=== PATIENT | female | born 1990 | race Caucasian/White ===

== ENCOUNTER 2016-05-01 08:13 | Inpatient (IN) | payer OTHER ==
[~2016-05-01] VITALS: Ht 162.6 cm; Wt 89.8 kg
[2016-05-01] VITALS (29 sets, daily range): BP systolic 97–123; BP diastolic 52–93; PULSE 16–110; RESP 16–18; TEMP 98.2–98.4
[~2016-05-01 08:13] MED LIST: FLON0.053; XYZA5TAB2 PO
[2016-05-01] MEDS ORDERED: LACTATED RINGER'S 1000 ML INJ 1,000 ML IV PRN (09:06)
[2016-05-01] MEDS ORDERED: LIDOCAINE HCL 1% 50 ML VIAL I-DERMAL PRN (09:15)
[2016-05-01] MEDS ORDERED: LIDOCAINE HCL 1% 50 ML VIAL INFIL PRN (09:15)
[2016-05-01] MEDS ORDERED: MINERAL OIL 10 ML VIAL TOPICAL PRN (09:15)
[2016-05-01] MEDS ORDERED: ONDANSETRON HCL 4 MG/2 ML VIAL IV PRN (09:15)
[2016-05-01] MEDS ORDERED: OXYTOCIN 30 UNITS-500ML PREMIX 500 ML IV ONE (09:15)
[2016-05-01] MEDS ORDERED: SODIUM CHLORID 0.9% 500 ML INJ 500 ML IV PRN (09:15)
[2016-05-01] MEDS ORDERED: CITRIC ACID-SODIUM CITRATE LIQ 30 ML UDC PO SCH (09:15)
[2016-05-01 09:25] LABS: AUTOMATED NEUTROPHIL # 8.2 TH/MM3 (1.8-7.7); BASOPHIL % 0.3 % (0.0-2.0); EOSINOPHIL % 0.4 % (0.0-4.0); HEMATOCRIT 30.3 % (35.0-46.0); LYMPH % 14.9 % (9.0-44.0); LYMPHOCYTE # 1.6 TH/MM3 (1.0-4.8); MEAN CELL VOLUME 74.3 FL (80.0-100.0); MEAN CORPUSCULAR HEMOGLOBIN 24.6 PG (27.0-34.0); MEAN CORPUSCULAR HGB CONC 33.2 % (32.0-36.0); MONO % 8.3 % (0.0-8.0); NEUT % 76.1 % (16.0-70.0); PLATELET COUNT 358 TH/MM3 (150-450); RED BLOOD COUNT 4.08 MIL/MM3 (4.00-5.30); RED CELL DISTRIBUTION WIDTH 14.6 % (11.6-17.2); WHITE BLOOD COUNT 10.8 TH/MM3 (4.0-11.0)
[2016-05-01] MEDS ORDERED: SODIUM CHLOR 0.9% 1000 ML INJ 1,000 ML IV PRN (09:26)
[2016-05-01 09:29] LABS: HEMO FLAGS AUTO DIFF
[2016-05-01] MEDS: LACTATED RINGER'S 1000 ML INJ 1,000 ML IV SCH ×3 (09:29→23:00)
[2016-05-01] MEDS: MISOPROSTOL 25 MCG SUPP VAGINAL SCH ×2 (09:29→13:30)
[2016-05-01 09:31] LABS: BACTERIA, URINE FEW /hpf; BLOOD, URINE NEG (NEG); GLUCOSE,URINE NEG (NEG); HYALINE CAST, URINE 1 /lpf (RARE); KETONE, URINE NEG (NEG); NITRITE,URINE NEG (NEG); PH, URINE 5.5 (5.0-8.5); SQUAMOUS EPITHELIAL CELL URINE 3 /hpf (0-5); URINE COLOR LIGHT-YELLOW (YELLW/STRAW)
[2016-05-01 09:32] LABS: COMMENT (UR) CULT NOT INDICATED; CULTURE IF INDICATED CULT NOT INDICATED
[2016-05-01 10:04] LABS: SCAN/DIFF AUTO DIFF CONFIRMED
--- NOTE | 2016-05-01 13:12 | MH ---
cc: VISHAL PATEL M.D. DATE OF ADMISSION: 05/01/2016 DATE OF 1990 HISTORY OF PRESENT ILLNESS The patient is 40 weeks and 1 day based on early first trimester ultrasound, estimated date of confinement is 04/29/2016. The patient presents for routine care, concerns for developing macrosomia. Estimated weight is 8 at 1/2 pound. The patient's pelvis was considered adequate. Patient is admitted for Cervidil and induction of labor. PATIENT'S OBSTETRICAL HISTORY The patient is unremarkable. OB course, good care documented. The patient's blood type is A+. Group B strep status is negative. PAST MEDICAL HISTORY ALLERGIES No known drug allergies. MEDICATIONS Current medications include vitamins. She denies any systemic or chronic disease. States she has no past surgical history. The patient denies any use of alcohol, tobacco or illicit substances. FAMILY HISTORY Noncontributory. PHYSICAL EXAMINATION The patient is a well-appearing, well-nourished female. VITAL SIGNS: Stable. Blood pressure is 100/60, pulse and respiratory rate are normal. heart rate is in the 140s. HEENT: Shows no adenopathy or thyromegaly. LUNGS: Clear in all jesus. CARDIAC: Regular rhythm without murmur, rub or gallop. ABDOMEN: Abdomen is gravid, full-term fundus is in excess of 40 cm. Cervix is 50% posterior, 1 cm soft. EXTREMITIES: Symmetrical, full range of motion. No cyanosis, clubbing or edema. ASSESSMENT The patient is at 40 weeks and 1 day for induction of labor concerns for large for gestational age infant. The patient's group B strep is negative. Induction is to be performed with Cervidil. Vishal Patel MD [facility]/EO /5:27 PM /12:10 PM
[2016-05-01] MEDS ORDERED: SODIUM CHLOR 0.9% 1000 ML INJ 1,000 ML OTHER PRN (17:00)
[2016-05-01] MEDS ORDERED: DINOPROSTONE 10 MG VAG INSERT VAGINAL ONE (18:00)
[2016-05-01] MEDS ORDERED: PREN1CAP28 PO (19:02)
[2016-05-01] MEDS ORDERED: OXYTOCIN 30 UNITS-500ML PREMIX 500 ML ONE (22:28)
[2016-05-01] MEDS ORDERED: fentaNYL 2MCG-BUPIV 0.125% INJ 100 ML ONE (22:28)
[2016-05-02] VITALS (53 sets, daily range): BP systolic 91–117; BP diastolic 49–78; PULSE 18–112; RESP 16–20; TEMP 97.6–98.6
[2016-05-02] MEDS ORDERED: NO SYSTEM NARCOTICS XX PRN (00:15)
[2016-05-02] MEDS ORDERED: ePHEDrine/NS 25 MG/5 ML SYR IV PRN (00:15)
[2016-05-02] MEDS ORDERED: fentaNYL 2MCG-BUPIV 0.125% 100 ML EPIDURAL SCH (00:15)
[2016-05-02] MEDS ORDERED: DO NOT ADMINISTER ANTICOAGULANTS XX PRN (00:15)
[2016-05-02] MEDS ORDERED: OXYTOCIN 30 UNITS-500ML PREMIX 500 ML IV SCH (00:30)
[2016-05-02] MEDS: LACTATED RINGER'S 1000 ML INJ 1,000 ML IV SCH (05:42)
--- NOTE | 2016-05-02 08:51 | PD.OB.DELI ---
Anesthesia: Epidural Episiotomy: Midline Vaginal Delivery: Normal Presentation: Occiput anterior Nuchal Cord: x1 : Female One Minute : 9 Five Minute : 9 Weight: 7-10 Care: Suctioned Placenta: Spontaneous delivery Laceration: Episiotomy Repair: Chromic interrupted, Vicryl running Beverly Mirza MD May 02, 2016 08:51
[2016-05-02] MEDS ORDERED: DOCUSATE SODIUM 50 MG/SENNA 8.6 MG TAB PO PRN (09:00)
[2016-05-02] MEDS ORDERED: SODIUM CHLORIDE 0.9% FLUSH 5 ML FLUSH IV PRN (09:00)
[2016-05-02] MEDS ORDERED: ZOLPIDEM TARTRATE 5 MG TAB PO PRN (09:00)
[2016-05-02] MEDS ORDERED: ALUMINUM/MAGNESIUM/SIMETH 30 ML CUP PO PRN (09:00)
[2016-05-02] MEDS ORDERED: IBUPROFEN 600 MG TAB PO PRN (09:00)
[2016-05-02] MEDS ORDERED: BENZOCAINE 20% TOPICAL SPRAY 60 ML CAN TOPICAL PRN (09:00)
[2016-05-02] MEDS ORDERED: WITCH HAZEL 50%/GLYCERIN 12.5% 40 PAD JAR TOPICAL PRN (09:00)
[2016-05-02] MEDS ORDERED: SODIUM CHLORIDE 0.9% FLUSH 5 ML FLUSH IV SCH (09:00)
[2016-05-02] MEDS ORDERED: ONDANSETRON ODT 4 MG TAB PO PRN (09:00)
[2016-05-02] MEDS ORDERED: OXYTOCIN 30 UNITS-500ML PREMIX 500 ML IV ONE (09:00)
[2016-05-02] MEDS ORDERED: ACETAMINOPHEN 325 MG TAB PO PRN (09:00)
[2016-05-02] MEDS: IBUPROFEN SUSP 100 MG/5 ML 120 ML BOTTLE PO PRN ×3 (11:20→17:00)
[2016-05-02] MEDS ORDERED: MEASLES, MUMPS, RUBELLA VACCINE 0.5 ML VIAL SQ ONE (16:00)
[2016-05-02] MEDS ORDERED: DIPHTH/TETANUS/ACEL PERTUSSIS (BOOSTER) 0.5 ML VIAL/PFS IM ONE (16:00)
[2016-05-02] MEDS: ACETAMINOPHEN/HYDROcodone 325 MG/5 MG TAB PO PRN (22:35)
[2016-05-03 01:54] VITALS: BP 102/69; PULSE 67; RESP 16
[2016-05-03] MEDS: ACETAMINOPHEN/HYDROcodone 325 MG/5 MG TAB PO PRN ×2 (04:25→11:26)
[2016-05-03 08:00] VITALS: BP 112/75; PULSE 86; RESP 18; TEMP 98.5
[2016-05-03] MEDS: IBUPROFEN SUSP 100 MG/5 ML 120 ML BOTTLE PO PRN ×2 (09:11→16:02)
--- NOTE | 2016-05-03 10:03 | HHI.OB ---
Subjective Post Day: 1 Remarks Doing well small episiotomy tender breast feeding Objective Vitals/I&O Vital Signs Date Time Temp Pulse Resp B/P Pulse Ox O2 Delivery O2 Flow Rate FiO2 05/03/16 08:00 98.5 86 18 112/75 05/03/16 01:54 67 102/69 05/03/16 01:54 16 05/02/16 20:51 86 91/50 05/02/16 20:51 97.6 16 05/02/16 11:35 98.0 20 20 108/68 05/02/16 10:30 18 05/02/16 10:15 90 107/63 Objective Remarks GENERAL: Well-nourished, well-developed patient. CARDIOVASCULAR: Regular rate and rhythm without murmurs, gallops, or rubs. RESPIRATORY: Breath sounds equal bilaterally. No accessory muscle use. ABDOMEN/GI: Abdomen soft, non-tender. Fundus: Firm, non-tender at umbilicus. GENITOURINARY: Light to moderate bleeding. EXTREMITIES: No cyanosis or edema, non-tender, without signs of DVT. Medications and IVs Current Medications Medications (Trade) Dose Ordered Sig/Antione Route Start Time Stop Time Status Last Admin (NS Flush) 2 ml BID IV 05/02/16 09:00 (NS Flush) 2 ml UNSCH PRN IV 05/02/16 09:00 (Tylenol) 650 mg Q4H PRN PO 05/02/16 09:00 (Americaine 20% Top Spr) 1 spray Q4H PRN TOPICAL 05/02/16 09:00 05/02/16 11:18 (Tucks Pads) 1 applic QID PRN TOPICAL 05/02/16 09:00 05/02/16 11:18 (Carline-Colace) 2 tab Q12H PRN PO 05/02/16 09:00 (Ambien) 5 mg HS PRN PO 05/02/16 09:00 (Mag-Al Plus Susp Liq) 15 ml Q8H PRN PO 05/02/16 09:00 (Zofran Odt) 4 mg Q6H PRN PO 05/02/16 09:00 (Motrin Liq) 600 mg Q6H PRN PO 05/02/16 11:45 05/03/16 09:11 ([place] 5-325 Mg) 1 tab Q6H PRN PO 05/02/16 22:00 05/03/16 04:25 Assessment/Plan Assessment and Plan doing well anticipate discharge tomorrow am counseled Elvia Membreno MD May 03, 2016 10:03
== END 2016-05-03 17:00 | disposition home or self-care (01) | DRG 775 ==
LOC: H2EA 08:13 → H1EA 05-02 11:10
PROVIDERS: ADMIT Obstetrics & Gynecology; ATTEND Obstetrics & Gynecology
PROC: 10E0XZZ Delivery of Products of Conception, External Approach (ICD-10-PCS; principal; 2016-05-02)
PROC: 0W8NXZZ Division of Female Perineum, External Approach (ICD-10-PCS; 2016-05-02)
PROC: 00HU33Z Insertion of Infusion Device into Spinal Canal, Percutaneous Approach (ICD-10-PCS; 2016-05-02)
PROC: 3E0R3CZ (ICD-10-PCS; 2016-05-02)
DX: O48.0 Post-term pregnancy (principal); O69.81X0 Labor and delivery complicated by cord around neck, without compression, not applicable or unspecified; Z37.0 Single live birth; Z3A.40 40 weeks gestation of pregnancy
CPT/HCPCS: 81001; 85025; 86900; 86901; J2590; J3010; J7120

== ENCOUNTER 2017-02-08 18:53 | Emergency (ER) | payer OTHER ==
[~2017-02-08] VITALS: Ht 160 cm; Wt 72.0 kg
[~2017-02-08 18:53] MED LIST changes: -FLON0.053; +LEVA750T9 PO; +PRED20 PO; +PREN1CAP28 PO; -XYZA5TAB2 PO
[2017-02-08 18:54] VITALS: BP 138/80; PULSE 91; RESP 12; TEMP 98.5; O2SAT 98
[2017-02-08] MEDS ORDERED: PRED20 PO (19:30)
[2017-02-08] MEDS ORDERED: SODIUM CHLOR 0.9% 1000 ML INJ 1,000 ML IV SCH (19:39)
--- NOTE | 2017-02-08 20:01 | PD ---
HPI Chief Complaint: Allergic/Adverse Reaction Time Seen by Provider: 19:30 Travel History International Travel<30 days: No Contact w/Intl Traveler<30days: No Traveled to known affect area: No History of Present Illness HPI This is a 27-year-old female who presents for evaluation of a rash and tightness in her throat. Initially she developed some body aches and sore throat 1-2 weeks ago. She had a negative strep test at that time. She developed some dysuria and was started on an unknown antibiotic. Her STOCK SHEETS CLEANER INSPECTOR then changed her antibiotic to Levaquin 7 days ago. She completed this 2 days ago. She developed a rash 3 days ago and was seen at an urgent care center and started on prednisone and Benadryl. The rash persisted so yesterday she saw her retail assistant manager who increased her prednisone dosage and gave her an intramuscular site Metro injection. She presents today because the rash has persisted. The rash is moderate, no aggravating factors, non-pruritic, nonpainful. She endorses some tightness in her throat as well as persistent dysuria. She denies any vaginal bleeding or discharge, abdominal pain, cough or congestion, chest pain or shortness of breath, fevers or chills. No sick contacts. No other complaints. [facility] Past Medical History Medical History: Denies Significant Hx Diminished Hearing: No Tetanus Vaccination: Unknown Influenza Vaccination: Yes ?: Not LMP: 08/03/2015 : 1 Para: 1 Past Surgical History Surgical History: No Previous Surgery Social History Alcohol Use: Yes (RARE) Tobacco Use: No Substance Use: No Allergies-Medications (Allergen,Severity, Reaction): Coded Allergies: No Known Allergies (Verified Adverse Reaction, Unknown, 02/08/17) Reported Meds & Prescriptions Reported Meds & Active Scripts Active Reported Prednisone 20 Mg Tab 60 Mg PO DAILY Take 40 mg (2 tablets) daily for 5 days Levaquin (Levofloxacin) 750 Mg Tablet 750 Mg PO DAILY Multi + Dha 27-0.8-250 mg ( Mv & Min W/Fe Fumarat) 1 Cap Cap 1 Tab PO DAILY Review of Systems Except as stated in HPI: all other systems reviewed are Neg Physical Exam Narrative GENERAL: Well-nourished female in no acute distress SKIN: Warm and dry. Widespread morbilliform/papular rash noted. No vesicles, no pustules, no petechiae, no purpura, no wheals HEAD: Atraumatic. Normocephalic. EYES: Pupils equal and round. No scleral icterus. No injection or drainage. ENT: No nasal bleeding or discharge. Mucous membranes pink and moist. Oropharyngeal erythema and exudate noted. NECK: Trachea midline. No JVD. No lymphadenopathy. CARDIOVASCULAR: Regular rate and rhythm. No murmur appreciated. RESPIRATORY: No accessory muscle use. Clear to auscultation. Breath sounds equal bilaterally. GASTROINTESTINAL: Abdomen soft, non-tender, nondistended. Hepatic and splenic margins not palpable. MUSCULOSKELETAL: No obvious deformities. No clubbing. No cyanosis. No edema. NEUROLOGICAL: Awake and alert. No obvious cranial nerve deficits. Motor grossly within normal limits. Normal speech. PSYCHIATRIC: Appropriate mood and affect; insight and judgment normal. Data Data Last Documented VS Vital Signs Date Time Temp Pulse Resp B/P (MAP) Pulse Ox O2 Delivery O2 Flow Rate FiO2 02/08/17 18:54 98.5 91 12 138/80 (99) 98 Orders Orders Monoscreen (02/08/17 19:39) Complete Blood Count With Diff (02/08/17 19:39) Comprehensive Metabolic Panel (02/08/17 19:39) Urinalysis - C+S If Indicated (02/08/17 19:39) Group A Rapid Strep Screen (02/08/17 19:39) Sodium Chlor 0.9% 1000 Ml Inj (Ns 1000 M (02/08/17 19:39) Ed Urine Pregnancytest Poc (02/08/17 19:39) Strep A Abdys Screen W/ Titer (02/08/17 19:39) Strep Culture (Group A) (02/08/17 19:55) Labs Laboratory Tests Test 02/08/17 19:55 White Blood Count 11.5 TH/MM3 Red Blood Count 4.74 MIL/MM3 Hemoglobin 12.9 GM/DL Hematocrit 38.5 % Mean Corpuscular Volume 81.1 FL Mean Corpuscular Hemoglobin 27.2 PG Mean Corpuscular Hemoglobin Concent 33.6 % Red Cell Distribution Width 13.6 % Platelet Count 599 TH/MM3 Mean Platelet Volume 6.4 FL Neutrophils (%) (Auto) 44.9 % Lymphocytes (%) (Auto) 44.4 % Monocytes (%) (Auto) 10.4 % Eosinophils (%) (Auto) 0.0 % Basophils (%) (Auto) 0.3 % Neutrophils # (Auto) 5.2 TH/MM3 Lymphocytes # (Auto) 5.1 TH/MM3 Monocytes # (Auto) 1.2 TH/MM3 Eosinophils # (Auto) 0.0 TH/MM3 Basophils # (Auto) 0.0 TH/MM3 CBC Comment DIFF FINAL Differential Comment Urine Color LIGHT-YELLOW Urine Turbidity CLEAR Urine pH 6.5 Urine Specific [place] 1.005 Urine Protein NEG mg/dL Urine Glucose (UA) NEG mg/dL Urine Ketones NEG mg/dL Urine Occult Blood NEG Urine Nitrite NEG Urine Bilirubin NEG Urine Urobilinogen LESS THAN 2.0 MG/DL Urine Leukocyte Esterase NEG Urine Squamous Epithelial Cells 5 /hpf Microscopic Urinalysis Comment CULT NOT INDICATED Blood Urea Nitrogen 14 MG/DL Creatinine 0.78 MG/DL Random Glucose 93 MG/DL Total Protein 8.6 GM/DL Albumin 4.0 GM/DL Calcium Level 8.7 MG/DL Alkaline Phosphatase 179 U/L Aspartate Amino Transf (AST/SGOT) 48 U/L Alanine Aminotransferase (ALT/SGPT) 147 U/L Total Bilirubin 0.5 MG/DL Sodium Level 135 MEQ/L Potassium Level 3.5 MEQ/L Chloride Level 100 MEQ/L Carbon Dioxide Level 26.7 MEQ/L Anion Gap 8 MEQ/L Estimat Glomerular Filtration Rate 87 ML/MIN Monoscreen POS MDM Medical Decision Making Medical Screen Exam Complete: Yes Emergency Medical Condition: Yes Medical Record Reviewed: Yes Differential Diagnosis Infectious mononucleosis, exudate of pharyngitis, scarlet fever, tonsillitis, allergic reaction to medication, UTI Narrative Course Examination reveals exudate pharyngitis and widespread morbilliform rash. Plan is for basic lab work, urinalysis. Urinalysis is negative for UTI. I offered to perform a pelvic examination to further evaluate her dysuria however she is decliningshe reports that her STOCK SHEETS CLEANER INSPECTOR performed 1.5 weeks ago and she was told that all tests performed at that time were negative. Her lab work reveals mild leukocytosis with elevated lymphocytes. Her liver enzymes are mildly elevated and her mono screen is positive which is consistent with her disease. Discussed the results of her tests with her. Recommended discontinuation of her prednisone. She is stable for discharge. Diagnosis Primary Impression: Infectious mononucleosis Additional Instructions: Stay well hydrated well-nourished. Tylenol or Motrin for discomfort. Follow- up with engine service repairer and discuss clearance for breast-feeding. Return for any emergent medical conditions. Med/Other Pt SpecificInfo: No Change to Meds Disposition: 01 DISCHARGE HOME Condition: Stable Braxton De Leon Feb 08, 2017 20:01
[2017-02-08 20:31] LABS: AUTOMATED NEUTROPHIL # 5.2 TH/MM3 (1.8-7.7); BASOPHIL % 0.3 % (0.0-2.0); HEMATOCRIT 38.5 % (35.0-46.0); HEMOGLOBIN 12.9 GM/DL (11.6-15.3); LYMPH % 44.4 % (9.0-44.0); LYMPHOCYTE # 5.1 TH/MM3 (1.0-4.8); MEAN CELL VOLUME 81.1 FL (80.0-100.0); MEAN CORPUSCULAR HEMOGLOBIN 27.2 PG (27.0-34.0); MEAN CORPUSCULAR HGB CONC 33.6 % (32.0-36.0); MEAN PLATELET VOLUME 6.4 FL (7.0-11.0); MONO % 10.4 % (0.0-8.0); MONOCYTE # 1.2 TH/MM3 (0-0.9); NEUT % 44.9 % (16.0-70.0); PLATELET COUNT 599 TH/MM3 (150-450); RED BLOOD COUNT 4.74 MIL/MM3 (4.00-5.30); RED CELL DISTRIBUTION WIDTH 13.6 % (11.6-17.2); WHITE BLOOD COUNT 11.5 TH/MM3 (4.0-11.0)
[2017-02-08 20:32] LABS: BILIRUBIN, URINE NEG (NEG); BLOOD, URINE NEG (NEG); GLUCOSE,URINE NEG (NEG); KETONE, URINE NEG (NEG); NITRITE,URINE NEG (NEG); PH, URINE 6.5 (5.0-8.5); SQUAMOUS EPITHELIAL CELL URINE 5 /hpf (0-5); URINE COLOR LIGHT-YELLOW (YELLW/STRAW); URINE LEUKOCYTE ESTERASE NEG (NEG)
[2017-02-08 20:52] LABS: AST (GOT) 48 U/L (15-37); BICARBONATE 26.7 MEQ/L (21.0-32.0); BLOOD UREA NITROGEN 14 MG/DL (7-18); CALCIUM 8.7 MG/DL (8.5-10.1); CHLORIDE 100 MEQ/L (98-107); CREATININE 0.78 MG/DL (0.50-1.00); GLOMERULAR FILTRATION RATE 87 ML/MIN (>89); GLUCOSE,RANDOM 93 MG/DL (74-106); SODIUM (NA) 135 MEQ/L (136-145)
[2017-02-08 20:53] LABS: ALT (GPT) 147 U/L (10-53)
[2017-02-08 20:55] LABS: ALKALINE PHOSPHATASE 179 U/L (45-117); TOTAL BILIRUBIN ADULT 0.5 MG/DL (0.2-1.0); TOTAL PROTEIN 8.6 GM/DL (6.4-8.2)
[2017-02-08 21:01] LABS: MONOSCREEN POS (NEG)
[2017-02-08 22:53] VITALS: BP 131/74; PULSE 74; RESP 16; O2SAT 99
== END 2017-02-08 23:06 | disposition home or self-care (01) ==
LOC: NEPD 18:53
DX: B27.90 Infectious mononucleosis, unspecified without complication (principal); R30.0 Dysuria
CPT/HCPCS: 80053; 81001; 84703; 85025; 86308; 86403; 87081; 87880; 96360; 96361; 99284; J7030

== ENCOUNTER 2018-03-02 19:36 | Inpatient (IN) ==
[2018-03-02] MEDS ORDERED: Sod Chloride 0.9% Inj 1,000 ML IRRIGATION SCH (20:30)
[2018-03-02] MEDS ORDERED: fentaNYL Citrate Inj 100 MCG/2 ML Ampul IV.PUSH PRN ×4 (20:31→20:39)
[2018-03-02] MEDS ORDERED: Oxytocin 30 Units/500ml Premix 30 UNITS/500 ML BAG IV.SIG ONE (20:31)
[2018-03-02] MEDS ORDERED: Sodium Chlor 0.9% Inj 500 ML IV.SIG PRN (20:31)
[2018-03-02 20:44] LABS: Baso % (Auto) 0.3 % (0.0-2.0); Eos # (Auto) 0.1 th/mm3 (0.0-0.4); Eos % (Auto) 0.5 % (0.0-4.0); Hematocrit 26.9 % (35.0-46.0); Hemoglobin 8.3 gm/dL (11.6-15.3); Lymph # (Auto) 2.4 th/mm3 (1.0-4.8); Lymph % (Auto) 20.9 % (9.0-44.0); Mean Corpuscular Hemoglobin 20.4 pg (27.0-34.0); Mean Corpuscular Volume 66.3 fL (80.0-100.0); Mean Platelet Volume 6.5 fL (7.0-11.0); Mono % (Auto) 8.8 % (0.0-8.0); Neut # (Auto) 8.1 th/mm3 (1.8-7.7); Neut % (Auto) 69.5 % (16.0-70.0); Platelet Count 360 th/mm3 (150-450); Red Blood Count 4.05 mil/mm3 (4.00-5.30); Red Cell Distribution Width 15.9 % (11.6-17.2); White Blood Count 11.6 th/mm3 (4.0-11.0)
[2018-03-02] MEDS ORDERED: Citric Acid/Sodium Citrate Liq 30 ML UDC PO SCH (20:45)
[2018-03-02 20:50] LABS: Bacteria,Urine Rare /hpf; Bilirubin,Urine Negative (Negative); Clarity,Urine Clear (Clear); Color,Urine Straw (Yellw/Straw); Glucose,Urine (UA) Negative (Negative); Leukocyte Esterase,Urine Negative (Negative); Mucus,Urine Few /lpf (Occasional); Nitrite,Urine Negative (Negative); Specific Gravity,Urine 1.005 (1.002-1.035); Squamous Epithelial Cell,Urine 4 /hpf (0-5)
[2018-03-02 20:52] LABS: Mean Corpuscular HGB Conc 30.8 % (32.0-36.0)
[2018-03-02] MEDS ORDERED: Sod Chloride 0.9% Inj 1,000 ML IV.CONT PRN (21:00)
--- NOTE | 2018-03-02 22:26 | MH ---
cc: Vishal Be MD DATE OF ADMISSION: 03/02/2018 CHIEF COMPLAINT: The patient is admitted for induction of labor at term, 40 week intrauterine gestation. HISTORY OF PRESENT ILLNESS: The patient is a 28-year-old female, 2, para 1. Last menstrual period was 04/19/2017, estimated date of confinement 02/25/2018. First trimester ultrasound confirmatory, with an estimated date of confinement of 02/26/2018. The patient's course has been uncomplicated. Estimated weight is 8 pounds. The patient's group B strep status is negative. testing was normal. The patient's blood type is A positive. The patient declined genetic testing. The patient's 1-hour glucose tolerance test was normal. The patient was counseled as to her options at her estimated due date. Recent ultrasound was confirmatory of an estimated weight of approximately 8 pounds 11 ounces. PAST OBSTETRICAL HISTORY: Status post vaginal delivery in 2017, healthy female weighing 7 pounds 10 ounces. PAST MEDICAL HISTORY: Denies any systemic or chronic disease. ALLERGIES: HAS NO KNOWN DRUG ALLERGIES. SOCIAL HISTORY: The patient is . 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 The patient denies any use of alcohol, tobacco or illicit substances. FAMILY HISTORY: Noncontributory. PHYSICAL EXAMINATION: GENERAL: Well-appearing, well-nourished female, in no acute distress. VITAL SIGNS: Stable. Blood pressure is 118/76. heart rate is in the 140s. HEENT: Shows no adenopathy or thyromegaly. Neck is supple with full range of motion. Pupils are equally round and reactive to light. Extraocular eye movements are intact. LUNGS: Clear in all jesus. CARDIAC: Regular rhythm without murmur, rub or gallop. ABDOMEN: Gravid full-term fundal height measures 42 cm, vertex presentation. Estimated weight by Julito's is approximately 8 pounds. PELVIC: Cervix is posterior soft, 50%. External os is open to one finger. Internal os was closed. Vertex presentation confirmed by ultrasound. Membranes are intact. EXTREMITIES: Symmetrical, full range of motion. She has trace edema. Deep tendon reflexes are normal. There is no calf tenderness. There is no Homans sign. NEUROLOGIC: Grossly intact, nonfocal. ASSESSMENT: The patient is 40 weeks plus gestation for induction of labor with Cervidil. Group B strep status negative. Estimated weight 8 pounds. The patient's pelvis is proven to 7 pounds 10 ounces. MD REBECCA Woodard/domenica , 09:25 PM , 09:31 PM
[2018-03-03] MEDS ORDERED: Oxytocin 30 Units/500ml Premix 30 UNITS/500 ML BAG ONE (06:35)
[2018-03-03] MEDS ORDERED: Oxytocin 30 Units/500ml Premix 30 UNITS/500 ML BAG IV.SIG PRN (06:35)
[2018-03-03] MEDS ORDERED: fentaNYL 2MCG-Bupiv 0.125% Epi 150 ML EPIDURAL ONE (07:40)
[2018-03-03] MEDS ORDERED: fentaNYL 2MCG-Bupiv 0.125% Epi 150 ML EPIDURAL PRN (09:41)
[2018-03-03] MEDS ORDERED: fentaNYL Citrate Inj 100 MCG/2 ML Ampul EPIDURAL ONE (10:00)
[2018-03-03] MEDS ORDERED: Methylergonovine Inj 0.2 MG/ML Ampul ONE (14:11)
[2018-03-03] MEDS ORDERED: miSOPROStol 200 MCG Tablet ONE (14:11)
[2018-03-03] MEDS ORDERED: Oxytocin 30 Units/500ml Premix 30 UNITS/500 ML BAG IV.CONT PRN (14:31)
[2018-03-03] MEDS ORDERED: Bisacodyl 10 MG Supp RECTAL PRN (14:31)
[2018-03-03] MEDS ORDERED: Naloxone Inj 0.4 MG/ML Vial IV.PUSH PRN (14:31)
[2018-03-03] MEDS ORDERED: Acetaminophen 325 MG Tablet PO PRN (14:31)
[2018-03-03] MEDS ORDERED: Benzocaine 20% Top Spray 60 ML Can TOPICAL PRN (14:31)
[2018-03-03] MEDS ORDERED: Methylergonovine Inj 0.2 MG/ML Ampul IM ONE (14:31)
[2018-03-03] MEDS ORDERED: Witch Hazel 50%/Glyderin 12.5% 40 Pad Jar RECTAL PRN (14:31)
--- NOTE | 2018-03-03 14:31 | P.OBDELI ---
Weeks Gestation: 40 Medical Induction of Labor: Yes Medical Induction Start Date: 03/02/18 Artificial Rupture of Membrane: Yes (clear) Artificial ROM Date: 03/03/18 Artificial ROM Time: 07:35 Anesthesia: Epidural Episiotomy: none Vaginal Delivery: Normal Presentation: Occiput anterior Nuchal Cord: None Delayed Cord Clamping (45 sec): Yes Shoulder Dystocia: Suprapubic pressure given, Jaylon maneuver done Placenta: Spontaneous delivery Laceration: Vaginal, 2 deg Repair: Vicryl running Estimated blood loss (mL): 500 (PPH, responsive to methergine,pitocin) : Female Infant Delivery Date: 03/03/18 Weight: 4.167 kg score (1 min): 8 score (5 min): 9
[2018-03-03] MEDS ORDERED: Measles/Mumps/Rubella Vaccine Inj 0.5 ML Vial SQ ONE (16:00)
[2018-03-03] MEDS ORDERED: Diphtheria/Tetanus/Pertussis Vaccine Inj 0.5 ML Syringe IM ONE (16:00)
[2018-03-03] MEDS ORDERED: Zolpidem Tartrate 5 MG Tablet PO PRN (21:00)
[2018-03-03] MEDS: Senna/Docusate Sodium 8.6/50 MG Tablet PO SCH (22:36)
[2018-03-03] MEDS: Ibuprofen Liq 100 MG/5 ML 120 ML Bottle PO PRN (23:02)
[2018-03-04] MEDS ORDERED: Morphine Inj 4 MG/ML Vial IV.PUSH PRN (02:30)
[2018-03-04 06:25] LABS: Baso # (Auto) 0.1 th/mm3 (0.0-0.2); Baso % (Auto) 0.6 % (0.0-2.0); Eos # (Auto) 0.1 th/mm3 (0.0-0.4); Eos % (Auto) 0.6 % (0.0-4.0); Hematocrit 21.8 % (35.0-46.0); Lymph # (Auto) 2.3 th/mm3 (1.0-4.8); Lymph % (Auto) 16.9 % (9.0-44.0); Mean Corpuscular Hemoglobin 20.4 pg (27.0-34.0); Mean Corpuscular Volume 67.1 fL (80.0-100.0); Mean Platelet Volume 6.7 fL (7.0-11.0); Mono # (Auto) 1.3 th/mm3 (0.0-0.9); Mono % (Auto) 9.6 % (0.0-8.0); Neut # (Auto) 9.9 th/mm3 (1.8-7.7); Neut % (Auto) 72.3 % (16.0-70.0); Platelet Count 325 th/mm3 (150-450); Red Blood Count 3.25 mil/mm3 (4.00-5.30); Red Cell Distribution Width 16.2 % (11.6-17.2); White Blood Count 13.7 th/mm3 (4.0-11.0)
[2018-03-04 06:30] LABS: Mean Corpuscular HGB Conc 30.4 % (32.0-36.0)
[2018-03-04 06:32] LABS: Hemoglobin 6.6 gm/dL (11.6-15.3)
--- NOTE | 2018-03-04 07:22 | P.PNOB ---
Subjective Post day: 1 Interval history: Patient doing well, vaginal bleeding minimal, no signs of dizziness, headaches, shortness of breath, palpitations, pain fairly well controlled, voiding spontaneously, ambulating without difficulty. Objective Vital Signs/I&O: Vital Signs 03/03/18 07:30 03/03/18 08:31 03/03/18 09:04 Temperature 97.7 F Pulse Rate 112 H Respiratory Rate 18 Blood Pressure 122/80 03/03/18 09:06 03/03/18 09:15 03/03/18 09:30 Temperature Pulse Rate 99 H 103 H Respiratory Rate 17 Blood Pressure 92/56 L 92/67 L 03/03/18 10:00 03/03/18 10:30 03/03/18 12:01 Temperature Pulse Rate 81 94 H 93 H Respiratory Rate Blood Pressure 97/65 L 91/69 L 99/60 L 03/03/18 12:30 03/03/18 13:01 03/03/18 13:31 Temperature Pulse Rate 95 H 96 H 138 H Respiratory Rate Blood Pressure 102/64 103/48 L 93/58 L 03/03/18 14:00 03/03/18 14:19 03/03/18 14:20 Temperature Pulse Rate 151 H 91 H Respiratory Rate 18 Blood Pressure 111/73 79/49 L 03/03/18 14:30 03/03/18 14:35 03/03/18 14:50 Temperature Pulse Rate 82 Respiratory Rate 17 17 Blood Pressure 108/51 L 03/03/18 15:05 03/03/18 15:20 03/03/18 17:05 Temperature 98.6 F Pulse Rate 80 Respiratory Rate 18 17 18 Blood Pressure 96/51 L 03/03/18 20:00 Temperature 97.5 F L Pulse Rate 88 Respiratory Rate 18 Blood Pressure 94/62 L Intake & Output 03/03/18 03/04/18 03/04/18 18:59 06:59 18:59 Intake Total 1000 / 1000 Balance 1000 / 1000 Intake: IV 1000 / 1000 LR 1000 mL Inj 1,000 ML @ 125 1000 / 1000 mls/hr IV.CONT .Q8H [facility] Rx#: [id number] Result Diagrams: 03/04/18 06:01 Objective Remarks: GENERAL: Well-nourished, well-developed patient. CARDIOVASCULAR: Regular rate and rhythm without murmurs, gallops, or rubs. RESPIRATORY: Breath sounds equal bilaterally. No accessory muscle use. ABDOMEN/GI: Abdomen soft, non-tender. Fundus: Firm, non-tender at umbilicus. GENITOURINARY: Light to moderate bleeding. EXTREMITIES: No cyanosis or edema, non-tender, without signs of DVT. Medications and IVs: Active Medications Acetaminophen (Tylenol) 650 mg PO Q4H PRN PRN Reason: PAIN SCALE 1 TO 2 Al Hydroxide/Mg Hydroxide (Milk Of Magnesia Liq) 30 ml PO Q12H PRN PRN Reason: Mild Constipation Benzocaine (Americaine 20% Top [place]) 1 spray TOPICAL Q4H PRN PRN Reason: For Perineum Discomfort Bisacodyl (Dulcolax Supp) 10 mg RECTAL DAILY PRN PRN Reason: SEVERE CONSITIPATION Citric Acid/Sodium Citrate (Sodium Citrate/Citric Acid Liq) 30 ml PO SCRAP WORKER [facility] Stop: 03/06/18 20:44 Ephedrine Sulfate (Ephedrine/Ns Syringe) 10 mg IV.PUSH UNSCH PRN PRN Reason: SEE LABEL COMMENTS Stop: 03/04/18 09:41 Fentanyl Citrate (Fentanyl Inj) 50 mcg IV.PUSH Q1H PRN PRN Reason: Pain Scale 3 - 5 Fentanyl Citrate (Fentanyl Inj) 100 mcg IV.PUSH Q1H PRN PRN Reason: PAIN SCALE 6 TO 10 Lactated Ringer's (Lr 1000 Ml Inj) 1,000 mls @ 125 mls/hr IV.CONT .Q8H [facility] Last Admin: 03/03/18 22:41 Dose: Not Given Lactated Ringer's (Lr 1000 Ml Inj) 1,000 mls @ 3,000 mls/hr IV.SIG UNSCH PRN PRN Reason: compromise or epidural Sodium Chloride (Ns Inj) 500 mls @ 1,000 mls/hr IV.SIG UNSCH PRN PRN Reason: SEE LABEL COMMENTS Sodium Chloride (Ns Inj) 1,000 mls @ 100 mls/hr IV.CONT .Q10H PRN PRN Reason: SEE LABEL COMMENTS Oxytocin (Pitocin 30 Units/Ns 500 Ml Premix) 30 units in 500 mls @ 2 mls/hr IV.SIG TITRATE PRN; Protocol PRN Reason: For induction of labor Last Admin: 03/03/18 06:49 Dose: 2 milliunit/min, 2 mls/hr Fentanyl/Bupivacaine/Sodium Chlor (Fentanyl 2 Mcg-Bupiv 0.125% Epi) 150 mls @ 10 mls/hr EPIDURAL PRN PRN PRN Reason: for Labor Pain Last Admin: 03/03/18 14:21 Dose: 10 mls/hr Oxytocin (Pitocin 30 Units/Ns 500 Ml Premix) 30 units in 500 mls @ 100 mls/hr IV.CONT UNSCH PRN PRN Reason: Heavy bleeding Ibuprofen (Motrin Liq) 800 mg PO Q8H PRN PRN Reason: CRAMPING Last Admin: 03/03/18 23:02 Dose: 800 mg Lactulose (Lactulose Liq) 30 ml PO DAILY PRN PRN Reason: SEVERE CONSITIPATION Lidocaine HCl (Xylocaine 1% Inj) 0.1 ml I-DERMAL PRN PRN PRN Reason: For IV start Stop: 03/05/18 20:30 Lidocaine HCl (Xylocaine 1% Inj) 10 ml INFILTRATN PRN PRN PRN Reason: For episiotomy repair Stop: 03/04/18 20:30 Mineral Oil (Muri-Lube Oil) 10 ml TOPICAL PRN PRN PRN Reason: PRN perineal massage Miscellaneous Information (Misc Information) 1 each OTHER UNSCH PRN PRN Reason: SEE LABEL COMMENTS Stop: 03/04/18 09:41 Miscellaneous Information (Misc Information) 1 each OTHER UNSCH PRN PRN Reason: SEE LABEL COMMENTS Stop: 03/04/18 09:41 Morphine Sulfate (Morphine Inj) 2 mg IV.PUSH Q2H PRN PRN Reason: BREAKTHROUGH PAIN Naloxone HCl (Narcan Inj) 0.1 mg IV.PUSH Q2M PRN PRN Reason: for opiate reversal Ondansetron HCl (Zofran Inj) 4 mg IV.PUSH Q6H PRN PRN Reason: NAUSEA OR VOMITING Ondansetron HCl (Zofran Odt) 4 mg PO Q6H PRN PRN Reason: NAUSEA OR VOMITING Oxytocin (Pitocin Inj) 20 unit IV.SIG ONCE PRN PRN Reason: For excessive bleeding Stop: 03/04/18 14:30 Senna/Docusate Sodium (Carline-Colace) 1 tab PO BID JANUARY Last Admin: 03/03/18 22:36 Dose: 1 tab Sennosides (Senokot) 17.2 mg PO Q12H PRN PRN Reason: Moderate Constipation Sodium Chloride (Ns Flush) 2 ml IV.FLUSH BID JANUARY Last Admin: 03/03/18 22:05 Dose: 2 ml Sodium Chloride (Ns Flush) 2 ml IV.FLUSH PRN PRN PRN Reason: FLUSH AFTER USING IV ACCESS Witch Jenna/Glycerin (Tucks Pads) 1 applicatio RECTAL QID PRN PRN Reason: HEMORRHOIDS Zolpidem Tartrate (Ambien) 5 mg PO HS PRN PRN Reason: SLEEP Assessment and Plan - Plan 28-year-old status post at 40 weeks and 6 days 1. day 1: Afebrile, vital signs stable, continue routine care. Anticipate discharge home tomorrow. -Female 2. Microcytic anemia/ hemorrhage: Nursing to do set of orthostatic vitals this AM. reviewed blood work this morning with patient, patient asymptomatic, discussed risks associated with anemia, will give IV iron repeat hemoglobin later today, rec PO iron after d/c pt does not take pills, needs liquid medications.
[2018-03-04] MEDS: Ibuprofen Liq 100 MG/5 ML 120 ML Bottle PO PRN ×2 (08:16→16:14)
[2018-03-04] MEDS ORDERED: Iron Sucrose Inj 200 MG in Sodium Chlor 0.9% Inj 100 ML IV.SIG ONE (09:00)
[2018-03-04] MEDS: Senna/Docusate Sodium 8.6/50 MG Tablet PO SCH (12:08)
[2018-03-04 15:12] LABS: Hematocrit 21.5 % (35.0-46.0); Mean Corpuscular HGB Conc 32.2 % (32.0-36.0); Mean Corpuscular Hemoglobin 21.4 pg (27.0-34.0); Mean Corpuscular Volume 66.6 fL (80.0-100.0); Mean Platelet Volume 6.6 fL (7.0-11.0); Platelet Count 352 th/mm3 (150-450); Red Blood Count 3.23 mil/mm3 (4.00-5.30); Red Cell Distribution Width 16.1 % (11.6-17.2); White Blood Count 12.6 th/mm3 (4.0-11.0)
[2018-03-04 15:51] LABS: Hemoglobin 6.9 gm/dL (11.6-15.3)
[2018-03-04 20:31] VITALS: RESP 18
[2018-03-05] MEDS: Ibuprofen Liq 100 MG/5 ML 120 ML Bottle PO PRN (00:26)
[2018-03-05] MEDS: Senna/Docusate Sodium 8.6/50 MG Tablet PO SCH ×2 (00:26→09:16)
--- NOTE | 2018-03-05 02:38 | P.PNOB ---
Subjective Post day: 2 Interval history: s/p complicated by shoulder dystocia with female >9# at ; doing well, has baseline anemia and post-delivery Hgb 6.6 and recheck 6.9, received IV venofer 03/04/18; is asymptomatic and strongly desires to avoid blood transfusion if able; AM Hgb ordered for 6am; minimal lochia, voiding, tolerating diet, pain well controlled Objective Vital Signs/I&O: Vital Signs 03/04/18 08:00 03/04/18 08:50 03/04/18 20:00 Temperature 98.2 F 98.3 F Pulse Rate 86 80 Respiratory Rate 18 2 L 18 Blood Pressure 89/62 L 101/68 Result Diagrams: 03/04/18 14:56 Objective Remarks: GENERAL: Well-nourished, well-developed patient. CARDIOVASCULAR: Regular rate and rhythm without murmurs, gallops, or rubs. RESPIRATORY: Breath sounds equal bilaterally. No accessory muscle use. ABDOMEN/GI: Abdomen soft, non-tender. Fundus: Firm, non-tender at umbilicus. GENITOURINARY: Light bleeding. EXTREMITIES: No cyanosis or edema, non-tender, without signs of DVT. Medications and IVs: Active Medications Acetaminophen (Tylenol) 650 mg PO Q4H PRN PRN Reason: PAIN SCALE 1 TO 2 Al Hydroxide/Mg Hydroxide (Milk Of Magnesia Liq) 30 ml PO Q12H PRN PRN Reason: Mild Constipation Benzocaine (Americaine 20% [place]) 1 spray TOPICAL Q4H PRN PRN Reason: For Perineum Discomfort Bisacodyl (Dulcolax Supp) 10 mg RECTAL DAILY PRN PRN Reason: SEVERE CONSITIPATION Citric Acid/Sodium Citrate (Sodium Citrate/Citric Acid Liq) 30 ml PO [employer]JECT MANAGEMENT [employer]NALYST [facility] Stop: 03/06/18 20:44 Fentanyl Citrate (Fentanyl Inj) 50 mcg IV.PUSH Q1H PRN PRN Reason: Pain Scale 3 - 5 Fentanyl Citrate (Fentanyl Inj) 100 mcg IV.PUSH Q1H PRN PRN Reason: PAIN SCALE 6 TO 10 Lactated Ringer's (Lr 1000 Ml Inj) 1,000 mls @ 125 mls/hr IV.CONT .Q8H [facility] Last Admin: 03/04/18 20:07 Dose: Not Given Lactated Ringer's (Lr 1000 Ml Inj) 1,000 mls @ 3,000 mls/hr IV.SIG UNSCH PRN PRN Reason: compromise or epidural Sodium Chloride (Ns Inj) 500 mls @ 1,000 mls/hr IV.SIG UNSCH PRN PRN Reason: SEE LABEL COMMENTS Sodium Chloride (Ns Inj) 1,000 mls @ 100 mls/hr IV.CONT .Q10H PRN PRN Reason: SEE LABEL COMMENTS Oxytocin (Pitocin 30 Units/Ns 500 Ml Premix) 30 units in 500 mls @ 2 mls/hr IV.SIG TITRATE PRN; Protocol PRN Reason: For induction of labor Last Admin: 03/03/18 06:49 Dose: 2 milliunit/min, 2 mls/hr Fentanyl/Bupivacaine/Sodium Chlor (Fentanyl 2 Mcg-Bupiv 0.125% Epi) 150 mls @ 10 mls/hr EPIDURAL PRN PRN PRN Reason: for Labor Pain Last Admin: 03/03/18 14:21 Dose: 10 mls/hr Oxytocin (Pitocin 30 Units/Ns 500 Ml Premix) 30 units in 500 mls @ 100 mls/hr IV.CONT UNSCH PRN PRN Reason: Heavy bleeding Iron Sucrose 200 mg/ Sodium (Chloride) 110 mls @ 110 mls/hr IV.SIG ONCE ONE Stop: 03/05/18 10:59 Ibuprofen (Motrin Liq) 800 mg PO Q8H PRN PRN Reason: CRAMPING Last Admin: 03/05/18 00:26 Dose: 800 mg Lactulose (Lactulose Liq) 30 ml PO DAILY PRN PRN Reason: SEVERE CONSITIPATION Lidocaine HCl (Xylocaine 1% Inj) 0.1 ml I-DERMAL PRN PRN PRN Reason: For IV start Stop: 03/05/18 20:30 Mineral Oil (Muri-Lube Oil) 10 ml TOPICAL PRN PRN PRN Reason: PRN perineal massage Morphine Sulfate (Morphine Inj) 2 mg IV.PUSH Q2H PRN PRN Reason: BREAKTHROUGH PAIN Naloxone HCl (Narcan Inj) 0.1 mg IV.PUSH Q2M PRN PRN Reason: for opiate reversal Ondansetron HCl (Zofran Inj) 4 mg IV.PUSH Q6H PRN PRN Reason: NAUSEA OR VOMITING Ondansetron HCl (Zofran Odt) 4 mg PO Q6H PRN PRN Reason: NAUSEA OR VOMITING Senna/Docusate Sodium (Carline-Colace) 1 tab PO BID [facility] Last Admin: 03/05/18 00:26 Dose: 1 tab Sennosides (Senokot) 17.2 mg PO Q12H PRN PRN Reason: Moderate Constipation Sodium Chloride (Ns Flush) 2 ml IV.FLUSH BID [facility] Last Admin: 03/04/18 18:06 Dose: 2 ml Sodium Chloride (Ns Flush) 2 ml IV.FLUSH PRN PRN PRN Reason: FLUSH AFTER USING IV ACCESS Witch Jenna/Glycerin (Tucks Pads) 1 applicatio RECTAL QID PRN PRN Reason: HEMORRHOIDS Zolpidem Tartrate (Ambien) 5 mg PO HS PRN PRN Reason: SLEEP Assessment and Plan - Plan 28-year-old PPD#2 status post at 40 weeks and 6 days 1. day 2: Afebrile, vital signs stable, continue routine care. Anticipate discharge home today pending AM H/H value. Rx on chart, reviewed PP precautions with patient, will continue home PNV with iron & increase iron-rich foods in diet; -Female , doing well, nursery status 2. Microcytic anemia/ hemorrhage: patient asymptomatic, discussed risks associated with anemia, s/p IV iron yesterday, will repeat hemoglobin at 6am today, rec PO iron after d/c, pt strongly desires to avoid transfusion pt does not take pills, needs liquid medications. Discharge Planning: pending AM labs
[2018-03-05 06:20] LABS: Baso # (Auto) 0.1 th/mm3 (0.0-0.2); Baso % (Auto) 0.9 % (0.0-2.0); Eos # (Auto) 0.1 th/mm3 (0.0-0.4); Eos % (Auto) 1.5 % (0.0-4.0); Hematocrit 21.4 % (35.0-46.0); Lymph # (Auto) 2.5 th/mm3 (1.0-4.8); Lymph % (Auto) 25.7 % (9.0-44.0); Mean Corpuscular HGB Conc 31.9 % (32.0-36.0); Mean Corpuscular Hemoglobin 21.4 pg (27.0-34.0); Mean Corpuscular Volume 66.9 fL (80.0-100.0); Mean Platelet Volume 6.5 fL (7.0-11.0); Mono # (Auto) 0.9 th/mm3 (0.0-0.9); Mono % (Auto) 8.9 % (0.0-8.0); Neut # (Auto) 6.1 th/mm3 (1.8-7.7); Platelet Count 337 th/mm3 (150-450); Red Cell Distribution Width 16.5 % (11.6-17.2); White Blood Count 9.7 th/mm3 (4.0-11.0)
[2018-03-05 06:39] LABS: Hemoglobin 6.8 gm/dL (11.6-15.3)
[2018-03-05 07:47] LABS: Ovalocytes 1+
[2018-03-05 09:16] VITALS: BP 109/68; PULSE 92; TEMP 98
[2018-03-05] MEDS ORDERED: Iron Sucrose Inj 200 MG in Sodium Chlor 0.9% Inj 100 ML IV.SIG ONE (10:00)
== END 2018-03-05 13:01 | disposition home or self-care (01) | DRG 806 ==
LOC: H2E 19:36 → H1EA 03-03 17:01
PROVIDERS: ADMIT Obstetrics & Gynecology; ATTEND Obstetrics & Gynecology
CPT/HCPCS: 59025; 81001; 85018; 85025; 85027; 86900; 86901; J0131; J1756; J2210; J2590; J7120